=== PATIENT | female | born 1960 | race Caucasian/White ===

== ENCOUNTER 2023-12-31 13:30 | Outpatient (RCR) | payer MEDICAID, SELFPAY ==
--- NOTE | 2023-12-15 12:34 | PTNOTE_ITS ---
PT Outpatient Daily Note OP Daily Note Outpatient Physical Therapy Treatment Date: 12/15/23 Visit Reasons: mobility and strenght Subjective: No new complaints. Objective: Please see flow sheet for ther ex list. 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 Plan: Continue with POC. Length of Time (minutes) of Treatment: 30 Minutes Procedure Charges Therapeutic Exercise 30 minutes: Yes
--- NOTE | 2023-12-17 12:56 | PT.ODAYNRPT ---
PT Outpatient Daily Note OP Daily Note Outpatient Physical Therapy Treatment Date: 12/17/23 Visit Reasons: mobility and strenght Subjective: Pt notice sit to stand is getting easier due to increase thigh strength. Objective: Please see flow chart for list of ther ex performed Assessment: improving with LE mobility; pace with exercises to conserve energy and decrease fatigue Plan: Continue with PT Length of Time (minutes) of Treatment: 30 Minutes Procedure Charges Therapeutic Exercise 30 minutes: Yes
--- NOTE | 2023-12-24 11:45 | PT.ODAYNRPT ---
PT Outpatient Daily Note OP Daily Note Outpatient Physical Therapy Treatment Date: 12/24/23 Visit Reasons: mobility and strenght Subjective: Pt reports she has been having lots of itching and occasional shooting pain. Objective: Please see flow sheet for ther ex list. Assessment: Interventions given alternating sitting and standing to maximize pt participation. Plan: Continue with POC. Length of Time (minutes) of Treatment: 30 Minutes Procedure Charges Therapeutic Exercise 30 minutes: Yes
--- NOTE | 2023-12-29 15:12 | PT.ODAYNRPT ---
PT Outpatient Daily Note OP Daily Note Outpatient Physical Therapy Treatment Date: 12/29/23 Visit Reasons: mobility and strenght Subjective: Pt's knee hurt from squatting. Pt will still like to try a few squats today in therapy session. Pt seen neurologist and a repeat MRI is being ordered. Objective: Please see flow chart for list of ther ex performed Assessment: progressing with lower squat. Pt was able to complete more reps than instructed with good form. 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
--- NOTE | 2023-12-31 14:20 | PT.ODAYNRPT ---
PT Outpatient Daily Note OP Daily Note Outpatient Physical Therapy Treatment Date: 12/31/23 Visit Reasons: mobility and strenght Subjective: Pt's legs are sore and fatigue from calf raises and prefer not to do the exercises Objective: Please see flow chart for list of ther ex Assessment: pacing with exercises today to decrease fatigue. Pt able to complete instructed exercises Plan: Continue with PT Length of Time (minutes) of Treatment: 30 Minutes Procedure Charges Therapeutic Exercise 30 minutes: Yes
== END 2024-01-08 23:59 | disposition home or self-care (01) ==
LOC: CPTX 13:30
PROVIDERS: PCP Internal Medicine; Referring Provider Internal Medicine; Visit Provider Internal Medicine
DX: R26.2 Difficulty in walking, not elsewhere classified (principal); R53.1 Weakness; R26.89 Other abnormalities of gait and mobility
CPT/HCPCS: 97110

== ENCOUNTER 2024-01-24 10:00 | Outpatient (RCR) | payer MEDICAID, SELFPAY ==
--- NOTE | 2024-01-11 12:59 | PT.ODAYNRPT ---
PT Outpatient Daily Note OP Daily Note Outpatient Physical Therapy Treatment Date: 01/11/24 Visit Reasons: MOBILITY AND STRENGTH Subjective: Pt is using the came less to walk. Objective: TU sec Sit-Stand Test: 8 reps Assessment: Pt demonstrate better balance and improved LE endurance allowing her to start ambulating less with use of a AD Plan: Continue with PT Length of Time (minutes) of Treatment: 30 Minutes Procedure Charges Therapeutic Exercise 30 minutes: Yes
--- NOTE | 2024-01-13 11:37 | PT.ODAYNRPT ---
PT Outpatient Daily Note OP Daily Note Outpatient Physical Therapy Treatment Date: 01/13/24 Visit Reasons: MOBILITY AND STRENGTH Subjective: Pt's legs are sore from previous session. Pt mention she's been able to do more chores lately. Objective: Please see flow chart for list of ther ex performed Assessment: squatting was not performed today due to reported LE fatigue from the exercises last session. Pt tolerate all other exercises performed today Plan: Continue with PT Length of Time (minutes) of Treatment: 30 Minutes Procedure Charges Therapeutic Exercise 30 minutes: Yes
--- NOTE | 2024-01-19 11:29 | PT.ODAYNRPT ---
PT Outpatient Daily Note OP Daily Note Outpatient Physical Therapy Treatment Date: 01/19/24 Visit Reasons: MOBILITY AND STRENGTH Subjective: Pt a little sore from washing her car this morning but she was able to complete the task. Objective: Please see flow chart for list of ther ex performed Assessment: progressing with dynamic balance with tandem walking. slight difficulty with side stepping on airex due to mild imbalance where she will use finger tips as support intermittently. Plan: Continue with PT Length of Time (minutes) of Treatment: 30 Minutes Procedure Charges Therapeutic Exercise 30 minutes: Yes
--- NOTE | 2024-01-24 10:39 | PT.ODS1RPT ---
PT OP Progress/Discharge Note Date of Service: 01/24/24 Progress Note/DC Note Progress Note/Discharge Note: DC Note Patient Information Visit Reasons: MOBILITY AND STRENGTH Service Discharge Date: 01/24/24 Status Subjective: Pt is feeling better lately. She has her norm nerve pain after certain activities. Pt has been able to walk, drive, stand, start light cooking, and yardwork with less limitation. Pt continues to see a neurosurgeon in [place] and is pending MRI. At this time Pt feels comfortable being release from care with exercises to continue at home. Objective: BLE AROM: all motions are WNL BLE MMTs: 4-/5 Sit-Stand: 10 reps TU sec Assessment: Pt demonstrate functional BLE mobility and strength allowing her to resume ADLs with less limitation. Pt has met most goals in therapy and will no longer benefit from physical therapy. Pt was instructed on HEP last session and educated to continue exercises to maintain overall mobility. Pt performed all exercises safely, thank you for your referrals. Plan: D/C home with HEP and follow up with MD STEVEN Procedure Charges Therapeutic Exercise 30 minutes: Yes
== END 2024-02-08 23:59 | disposition home or self-care (01) ==
LOC: CPTX 10:00
PROVIDERS: PCP Internal Medicine; Referring Provider Internal Medicine; Visit Provider Internal Medicine
DX: R26.2 Difficulty in walking, not elsewhere classified (principal); R53.1 Weakness; R26.89 Other abnormalities of gait and mobility
CPT/HCPCS: 97110

== ENCOUNTER → 2024-05-29 | Outpatient (CLI) | payer OTHER, SELFPAY ==
[2024-05-29 07:03] LABS: Collection Type, Urine Clean Catch; Squamous Epithelial Cell,Urine 0 /hpf (0-5)
[2024-05-29 07:27] LABS: Basophils # (Auto) 0.1 Thou/mm3 (0.0-0.2); Basophils % (Auto) 2 % (0-2.5); Eosinophils # (Auto) 0.1 Thou/mm3 (0.0-0.5); Eosinophils % (Auto) 2 % (0-10); Hematocrit 35.4 % (36.0-46.0); Immature Granulocytes % (Auto) 0 % (0-0); Lymphocytes % (Auto) 50 % (10-50); Mean Corpuscular HGB Conc 33.9 g/dl (31.0-37.0); Mean Corpuscular Hemoglobin 31.1 pg (25.0-35.0); Mean Corpuscular Volume 92 fL (80-100); Monocytes # (Auto) 0.3 Thou/mm3 (0.0-0.8); Monocytes % (Auto) 8 % (0-12); Neutrophils # (Auto) 1.5 Thou/mm3 (1.8-7.7); Neutrophils % (Auto) 38 % (37-80); Nucleated Red Blood Cell % 0 /100 WBC (0); Platelet Count 178 Thou/mm3 (140-440); RDW Standard Deviation 47.7 fL (36.4-46.3); Red Blood Count 3.86 Miln/mm3 (4.00-5.20)
[2024-05-29 07:39] LABS: Vitamin D 25 Hydroxy Total 26.6 ng/mL (7.3-40.2)
[2024-05-29 07:41] LABS: Alanine Aminotransferase 14 U/L (10-49); Albumin, Serum 4.5 gm/dL (3.4-4.8); Albumin/Globulin Ratio 1.6 (1.2-2.2); Alkaline Phosphatase 53 U/L (46-116); Anion Gap 5 (7-16); Aspartate Amino Transferase 21 U/L (0-34); BUN/Creatinine Ratio 19 Ratio (12-20); Bilirubin,Total 0.7 mg/dL (0.3-1.2); Blood Urea Nitrogen 19 mg/dL (9-23); Calcium 9.8 mg/dL (8.3-10.6); Calcium (Corrected) 9.8 mg/dL (8.5-10.1); Carbon Dioxide 30.1 mMol/L (20.0-31.0); Cardiac Risk Estimate 4.1 RATIO (3.7-5.6); Chloride 106 mMol/L (98-107); Cholesterol 251 mg/dL (132-200); Free T4 (Free Thyroxine) 1.12 ng/dL (0.89-1.76); Globulin 2.9 gm/dL (2.3-3.5); Glucose 98 mg/dL (74-106); HDL Cholesterol 61 mg/dL (40-60); LDL Cholesterol,Calculated 162 mg/dL (0-130); Osmolality,Calculated 283 (275-295); Sodium 141 mMol/L (136-145); Thyroid Stimulating Hormone 4.86 uIU/mL (0.55-4.78); Total Protein 7.4 gm/dL (5.7-8.2); Triglycerides 140 mg/dL (30-150); eGFR > 60 See Note
[2024-05-29 07:58] LABS: Glucose Estimated Average 103 mg/dL (80-131); Hemoglobin A1C 5.2 % Hgb (4.8-6.0)
[2024-05-29 08:09] LABS: Bilirubin,Urine Negative (Negative); Blood,Urine Negative (Negative); Clarity,Urine Clear (Clear/Hazy); Color,Urine Lt-Yellow (Lt Yel-Yel); Culture Indicated,Urine Not Indicated; Glucose, Urine Negative (Negative); Ketones,Urine Negative (Negative); Leukocyte Esterase,Urine Negative (Negative); Nitrite,Urine Negative (Negative); Protein,Urine Negative (Neg - Trace); RBC,Urine 1 /hpf (0-3); Specific Gravity,Urine 1.015 (1.001-1.035); Urobilinogen,Urine Negative mg/dL (0.0-1.0); WBC,Urine < 1 /hpf (0-5)
== END | disposition home or self-care (01) ==
LOC: SLAB 06:50
PROVIDERS: Referring Provider Registered Nurse; Visit Provider Registered Nurse
DX: E03.9 Hypothyroidism, unspecified (principal); R79.89 Other specified abnormal findings of blood chemistry
CPT/HCPCS: 36415; 80053; 80061; 81001; 82306; 83036; 84439; 84443; 85025

== ENCOUNTER → 2024-06-14 | Outpatient (CLI) | payer OTHER, SELFPAY ==
--- NOTE | 2024-06-14 08:30 | XR_ITS ---
Examination: Screening digital mammography, bilateral Computer aided detection 3-D breast Tomosynthesis, bilateral Date and time of exam: June 14, 2024 0824 hours Compared to mammograms dating to July 02, 2017 Indication: Screening Technique: Nonmagnified MLO, CC views of the breasts to been obtained, reconstructed from 3-D Tomosynthesis images. R2 computer aided detection program utilized for evaluation of suspicious masses and/or abnormal calcifications. 3-D Tomosynthesis images obtained. Findings: Scattered areas of fibroglandular density. Benign calcifications. No interval suspicious masses Impression: BI-RADS category II: Benign Findings. Recommend 1 year follow-up mammogram.
== END | disposition home or self-care (01) ==
LOC: CDIM 08:04
PROVIDERS: Referring Provider Registered Nurse; Visit Provider Registered Nurse
DX: Z12.31 Encounter for screening mammogram for malignant neoplasm of breast (principal); R92.323 Mammographic fibroglandular density, bilateral breasts; R92.1 Mammographic calcification found on diagnostic imaging of breast
CPT/HCPCS: 77063; 77067

== ENCOUNTER → 2024-07-13 | Outpatient (CLI) | payer OTHER, SELFPAY ==
[2024-07-14 09:16] LABS: BVAG Candida Negative (Negative); Bacterial Vaginosis Markers Negative (Negative); Candida glabrata Negative (Negative); Candida krusei PCR Negative (Negative); Trichomonas Negative (Negative)
== END | disposition home or self-care (01) ==
PROVIDERS: Referring Provider Physician Assistant Medical; Visit Provider Physician Assistant Medical
DX: B37.89 Other sites of candidiasis (principal); N76.0 Acute vaginitis; A59.01 Trichomonal vulvovaginitis
CPT/HCPCS: 81514

== ENCOUNTER → 2024-07-14 | Outpatient (CLI) | payer OTHER, SELFPAY ==
[2024-07-14 10:05] LABS: Follicle Stimulating Hormone 147.04 mIU/mL (See Note)
[2024-07-14 10:06] LABS: Free T4 (Free Thyroxine) 1.13 ng/dL (0.89-1.76); Thyroid Stimulating Hormone 3.03 uIU/mL (0.55-4.78)
== END | disposition home or self-care (01) ==
PROVIDERS: Referring Provider Physician Assistant Medical; Visit Provider Physician Assistant Medical
DX: N95.0 Postmenopausal bleeding (principal)
CPT/HCPCS: 36415; 82672; 83001; 83002; 84144; 84439; 84443

== ENCOUNTER → 2024-08-18 | Outpatient (CLI) | payer OTHER, SELFPAY ==
[2024-08-19 09:33] LABS: BVAG Candida Negative (Negative); Bacterial Vaginosis Markers Negative (Negative); Candida glabrata Negative (Negative); Candida krusei PCR Negative (Negative); Trichomonas Negative (Negative)
== END | disposition home or self-care (01) ==
LOC: SLDO 14:56
PROVIDERS: Referring Provider Specialist; Visit Provider Specialist
DX: B37.89 Other sites of candidiasis (principal); N76.0 Acute vaginitis; A59.01 Trichomonal vulvovaginitis
CPT/HCPCS: 81514

== ENCOUNTER 2024-10-26 05:30 | Day surgery (SDC) | payer OTHER, SELFPAY ==
--- NOTE | 2024-10-21 10:22 | ESHP_ITS ---
RE: IVANIA SUAZO : 1960 DATE OF ADMISSION: 10/26/2024 HISTORY OF PRESENT ILLNESS: This is a 63-year-old 4, para 1-0-3-1 with recurrent cervical dysplasia, who presents for LEEP cone biopsy of the cervix. ALLERGIES: SULFA AND MELATONIN. MEDICATIONS: 1. Levothyroxine 50 mcg one p.o. daily. 3. Sertraline 25 mg one p.o. daily. 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 PAST SURGICAL HISTORY: LEEP cone biopsy in 06/2022, bilateral tubal ligation, tonsillectomy, herniorrhaphy. SOCIAL HISTORY: The patient is . She denies any alcohol or drug use. FAMILY HISTORY: Mom, migraine headaches. Father and brother hypertension. Father, heart disease and stroke. OBSTETRIC HISTORY: In 1985, 40-week, normal vaginal delivery, 5 pounds, 15 ounce male. No complications. REVIEW OF SYSTEMS: She denies any chest pain, palpitations, cough, fever, shortness of breath or lower extremity pain. She denies any flank pain. PHYSICAL EXAMINATION: VITAL SIGNS: Blood pressure is 138/72, heart rate 88, respirations 18, temperature 98.6. HEENT: Oropharynx and sclerae are clear. LUNGS: Clear to auscultation bilaterally. HEART: Regular rate and rhythm. ABDOMEN: Nontender. EXTREMITIES: Nontender. SKIN: No gross rashes or lesions. ASSESSMENT: Recurrent cervical dysplasia. PLAN: LEEP cone biopsy of the cervix. Informed consent was obtained. The patient was made aware of the risks, complications, alternatives, and benefits of the proposed procedure and she agrees. DT: 08:54:16 TT: 10:21:00 Ref: [id number] - TID: [id number] [email or web address]
--- NOTE | 2024-10-23 06:50 | EKG_ITS ---
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
[2024-10-23 06:59] VITALS: BMI 25.6
[2024-10-23 08:12] LABS: Basophils # (Auto) 0.1 Thou/mm3 (0.0-0.2); Basophils % (Auto) 1 % (0-2.5); Eosinophils # (Auto) 0.1 Thou/mm3 (0.0-0.5); Eosinophils % (Auto) 2 % (0-10); Hematocrit 36.3 % (36.0-46.0); Hemoglobin 12.2 g/dL (12.0-16.0); Immature Granulocytes Auto 0.01 Thou/mm3 (0.00-0.00); Lymphocytes # (Auto) 2.2 Thou/mm3 (1.0-4.8); Lymphocytes % (Auto) 47 % (10-50); Mean Corpuscular HGB Conc 33.6 g/dl (31.0-37.0); Mean Corpuscular Hemoglobin 30.8 pg (25.0-35.0); Mean Corpuscular Volume 92 fL (80-100); Monocytes # (Auto) 0.4 Thou/mm3 (0.0-0.8); Monocytes % (Auto) 8 % (0-12); Neutrophils # (Auto) 2.0 Thou/mm3 (1.8-7.7); Neutrophils % (Auto) 43 % (37-80); Nucleated Red Blood Cell # 0.00 Thou/mm3 (0.00-0.00); Nucleated Red Blood Cell % 0 /100 WBC (0); Platelet Count 194 Thou/mm3 (140-440); RDW Standard Deviation 48.7 fL (36.4-46.3); Red Blood Count 3.96 Miln/mm3 (4.00-5.20); White Blood Count 4.7 Thou/mm3 (3.6-11.0)
[2024-10-23 08:22] LABS: INR 0.9 (0.9-1.3); Partial Thromboplastin Time 25.4 Seconds (22.0-36.0); Prothrombin Time 10.4 Seconds (9.0-12.2)
[2024-10-23 08:36] LABS: Alanine Aminotransferase 12 U/L (10-49); Albumin, Serum 4.5 gm/dL (3.4-4.8); Albumin/Globulin Ratio 1.7 (1.2-2.2); Alkaline Phosphatase 48 U/L (46-116); Anion Gap 8 (7-16); Aspartate Amino Transferase 20 U/L (0-34); BUN/Creatinine Ratio 13 Ratio (12-20); Bilirubin,Total 0.5 mg/dL (0.3-1.2); Blood Urea Nitrogen 13 mg/dL (9-23); Calcium 9.8 mg/dL (8.3-10.6); Calcium (Corrected) 9.8 mg/dL (8.5-10.1); Carbon Dioxide 28.6 mMol/L (20.0-31.0); Chloride 102 mMol/L (98-107); Creatinine (Component) 1.0 mg/dL (0.6-1.3); Estimated Creatinine Clearance 58.0 mL/min (>60); Globulin 2.6 gm/dL (2.3-3.5); Glucose 91 mg/dL (74-106); Osmolality,Calculated 277 (275-295); Potassium 4.2 mMol/L (3.4-5.1); Sodium 139 mMol/L (136-145); Total Protein 7.1 gm/dL (5.7-8.2); eGFR > 60 See Note
[2024-10-26 06:02] VITALS: BP 117/69; PULSE 66; RESP 18; TEMP 36.7; O2SAT 95; BMI 25.6
[2024-10-26 08:14] VITALS: BP 97/58; PULSE 81; RESP 16; TEMP 36.8; O2SAT 98
--- NOTE | 2024-10-26 08:14 | SUR.PHASEI ---
0814 Patient arrived to recovery resting comfortably in [facility], drowsy and talking with staff, breathing unlabored, vital signs stable, denies pain and nausea, dressing intact to vaginal area; peripad, no bleeding noted, report received Dr. Weiss and Tobi DUNCAN
[2024-10-26 08:19] VITALS: BP 102/57; PULSE 80; RESP 14; O2SAT 95
[2024-10-26 08:24] VITALS: BP 96/62; PULSE 86; RESP 17; O2SAT 96
[2024-10-26 08:29] VITALS: BP 114/65; PULSE 72; RESP 16; O2SAT 98
[2024-10-26 08:44] VITALS: BP 110/69; PULSE 65; RESP 20; TEMP 36.7; O2SAT 97
--- NOTE | 2024-10-26 09:01 | SUR.PHASEII ---
0901 Patient meets discharge criteria from recovery, awake and alert, breathing unlabored, vital signs stable, denies pain and nausea, assisted with dressing into her clothing by her friend, discharge instructions given to patient and patient friend, friend signed discharge instructions. Patient given all her belongings prior to discharge, transported via wheel chair and left in a private vehicle.
--- NOTE | 2024-10-26 09:09 | ESOP_ITS ---
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 She was placed in the dorsal lithotomy position. She was prepped and draped in a sterile fashion. A timeout was performed. Insulated speculum was placed in the vagina. The cervix was painted with Lugol's solution and the cervix was circumferentially injected with 10 mL of lidocaine 1% with epinephrine. Using the 1.0 x 1.0 loop electrode, the remaining transition zone was excised and the specimen sent to pathology inked at 12 o'clock. Endocervix curettings taken with the Kevorkian curette. Hemostasis was achieved with the cautery. Safety backup hemostatic measure was to place an 0 Vicryl suture at 3 and 9 o'clock. All instruments were removed from the vagina. She was reversed from general anesthesia in the supine position and transferred to the recovery room in stable condition. She tolerated the procedure well. Counts were correct. I discussed with the patient's family the nature of her condition, intraoperative findings, expectation for recovery. All questions were answered. Specimen: other (1. LEEP specimen 2 Endocervical curettings. ) Estimated blood loss (ml): 1 Findings: Normal appearing cervix Complications: none Surgical staff Operation Date: 10/26/24 07:45 Case Staff Anesthesiologist: Dread Weiss Diagnosis Discharge Diagnosis (1) Dysplasia, cervix uteri: Status: Acute Problem List Completed Was Problem List Reviewed/Reconciled?: Yes
== END 2024-10-26 09:01 | disposition home or self-care (01) ==
PROVIDERS: PCP Family Medicine; Referring Provider Specialist; Visit Provider Specialist
PROC: 0UBC7ZZ Excision of Cervix, Via Natural or Artificial Opening (ICD-10-PCS; CPT 57522; principal; 2024-10-26 07:30)
DX: N87.0 Mild cervical dysplasia (principal); Z01.810 Encounter for preprocedural cardiovascular examination
CPT/HCPCS: 57522; 36415; 80053; 85025; 85610; 85730; 86850; 86900; 86901; 93005; A4217; A4649; J0690; J1100; J2598; J2704; J2765; J3010; J3490; A9270

== ENCOUNTER → 2024-12-15 | Outpatient (CLI) | payer OTHER, SELFPAY ==
[2024-12-15 08:02] LABS: Basophils # (Auto) 0.1 Thou/mm3 (0.0-0.2); Basophils % (Auto) 1 % (0-2.5); Eosinophils # (Auto) 0.1 Thou/mm3 (0.0-0.5); Eosinophils % (Auto) 2 % (0-10); Hematocrit 35.3 % (36.0-46.0); Hemoglobin 11.9 g/dL (12.0-16.0); Immature Granulocytes Auto 0.00 Thou/mm3 (0.00-0.00); Lymphocytes # (Auto) 2.1 Thou/mm3 (1.0-4.8); Lymphocytes % (Auto) 46 % (10-50); Mean Corpuscular HGB Conc 33.7 g/dl (31.0-37.0); Mean Corpuscular Hemoglobin 30.4 pg (25.0-35.0); Mean Corpuscular Volume 90 fL (80-100); Monocytes # (Auto) 0.4 Thou/mm3 (0.0-0.8); Monocytes % (Auto) 8 % (0-12); Neutrophils # (Auto) 2.0 Thou/mm3 (1.8-7.7); Neutrophils % (Auto) 44 % (37-80); Nucleated Red Blood Cell # 0.00 Thou/mm3 (0.00-0.00); Nucleated Red Blood Cell % 0 /100 WBC (0); Platelet Count 190 Thou/mm3 (140-440); RDW Standard Deviation 47.7 fL (36.4-46.3); Red Blood Count 3.91 Miln/mm3 (4.00-5.20); White Blood Count 4.7 Thou/mm3 (3.6-11.0)
[2024-12-15 08:14] LABS: Iron 108 mcg/dL (50-170); Percent Iron Saturation 33 % (20-55); Total Iron Binding Capacity 322 mcg/dL (250-425); Unsaturated Iron Binding 214 (225-295)
[2024-12-15 08:18] LABS: Alanine Aminotransferase 13 U/L (10-49); Albumin, Serum 4.8 gm/dL (3.4-4.8); Albumin/Globulin Ratio 2.2 (1.2-2.2); Alkaline Phosphatase 48 U/L (46-116); Anion Gap 7 (7-16); Aspartate Amino Transferase 22 U/L (0-34); BUN/Creatinine Ratio 17 Ratio (12-20); Bilirubin,Total 0.5 mg/dL (0.3-1.2); Blood Urea Nitrogen 17 mg/dL (9-23); Calcium 9.6 mg/dL (8.3-10.6); Calcium (Corrected) 9.6 mg/dL (8.5-10.1); Carbon Dioxide 27.6 mMol/L (20.0-31.0); Chloride 106 mMol/L (98-107); Creatinine (Component) 1.0 mg/dL (0.6-1.3); Free T4 (Free Thyroxine) 1.27 ng/dL (0.89-1.76); Globulin 2.2 gm/dL (2.3-3.5); Glucose 94 mg/dL (74-106); Osmolality,Calculated 282 (275-295); Potassium 4.2 mMol/L (3.4-5.1); Sodium 141 mMol/L (136-145); Thyroid Stimulating Hormone 2.42 uIU/mL (0.55-4.78); Total Protein 7.0 gm/dL (5.7-8.2); Vitamin B12 357 pg/mL (211-911); Vitamin D 25 Hydroxy Total 26.3 ng/mL (7.3-40.2); eGFR > 60 See Note
== END | disposition home or self-care (01) ==
PROVIDERS: PCP Family Medicine; Referring Provider Family Medicine; Visit Provider Family Medicine
DX: I67.1 Cerebral aneurysm, nonruptured (principal); E03.9 Hypothyroidism, unspecified
CPT/HCPCS: 36415; 80053; 82306; 82607; 83540; 83550; 84439; 84443; 85025